=== PATIENT | male | born 1965 | race Caucasian/White ===

== ENCOUNTER 2017-05-20 09:50 | Emergency (ER) | payer MEDICAID ==
[~2017-05-20] VITALS: Ht 170.2 cm; Wt 108.9 kg
[2017-05-20 10:00] VITALS: BP_SYST 152
--- NOTE | 2017-05-20 10:03 | NUR ---
Patient triaged and placed in waiting room. VSS and patient appears in no acute distress at this time. Accompanied by SELF, awaiting available bed, and MD notified of need for MSE.
--- NOTE | 2017-05-20 10:15 | NUR ---
PT PLACED IN [address]
--- NOTE | 2017-05-20 10:20 | NUR ---
ER at bedside examining patient.
[2017-05-20 10:51] VITALS: BP_SYST 148
--- NOTE | 2017-05-20 10:51 | NUR ---
Patient given written and verbal discharge instructions and verbalizes understanding. ER MD discussed with patient the results and treatment provided. Patient in stable condition. ID arm band removed. IV catheter removed intact and dressing applied, no active bleeding. Rx of BACTRIM, METFORMIN, TRAMADOL, OMPEPRAZOLE, BENAZEPRIL AND LANSOPRAZOLE given. Patient educated on pain management and to follow up with PMD. Pain Scale 3. DR DALY IS AWARE, PRESCRIPTION WAS GIVEN FOR HOME, PT STATES WILL TAKE AT HOME Opportunity for questions provided and answered.
== END 2017-05-20 10:51 | disposition home or self-care (01) ==
LOC: SED 09:50
DX: Z76.0 Encounter for issue of repeat prescription (principal); G89.29 Other chronic pain; M54.5 Low back pain; K21.9 Gastro-esophageal reflux disease without esophagitis; I10 Essential (primary) hypertension; E11.9 Type 2 diabetes mellitus without complications
CPT/HCPCS: 99283

== ENCOUNTER 2017-06-27 15:41 | Emergency (ER) | payer MEDICAID ==
[~2017-06-27] VITALS: Ht 172.7 cm; Wt 117.5 kg
[2017-06-27 15:52] VITALS: BP_SYST 156
[2017-06-27] MEDS ORDERED: BACITRACIN 1 GM OINT TP ONE (17:45)
[2017-06-27 17:57] VITALS: BP_SYST 148
== END 2017-06-27 17:57 | disposition home or self-care (01) ==
LOC: SED 15:41
DX: Z76.0 Encounter for issue of repeat prescription (principal); R21 Rash and other nonspecific skin eruption; K21.9 Gastro-esophageal reflux disease without esophagitis; G89.29 Other chronic pain; M54.9 Dorsalgia, unspecified; I10 Essential (primary) hypertension; E11.9 Type 2 diabetes mellitus without complications; F17.200 Nicotine dependence, unspecified, uncomplicated
CPT/HCPCS: 99283

== ENCOUNTER 2021-11-01 05:22 | Emergency (ER) | payer MEDICAID ==
[~2021-11-01] VITALS: Ht 172.7 cm; Wt 77.1 kg
[2021-11-01] MEDS ORDERED: CLINDAMYCIN HCL 150 MG CAPSULE PO ONE (06:45)
[2021-11-01 07:00] VITALS: BP_SYST 155
[2021-11-01] MEDS ORDERED: CLIN-142 PO (07:26)
[2021-11-01 09:03] VITALS: BP_SYST 138
== END 2021-11-01 09:05 | disposition home or self-care (01) ==
LOC: SED 05:22
DX: L03.114 Cellulitis of left upper limb (principal); L03.113 Cellulitis of right upper limb; L03.221 Cellulitis of neck; E11.65 Type 2 diabetes mellitus with hyperglycemia; F45.8 Other somatoform disorders; I10 Essential (primary) hypertension; K21.9 Gastro-esophageal reflux disease without esophagitis; Z79.899 Other long term (current) drug therapy
CPT/HCPCS: 82962; 99283

== ENCOUNTER 2023-05-26 14:14 | Inpatient (IN) | payer MEDICAID, OTHER ==
[~2023-05-26] VITALS: Ht 172.7 cm; Wt 75.8 kg
[~2023-05-26 14:14] MED LIST: CLIN-142 PO
[2023-05-26 14:20] VITALS: BP_SYST 149; PULSE 115; RESP 18; TEMP 98.5; O2SAT 95
[2023-05-26 15:16] LABS: BASOPHILS % (AUTO) 0.3 % (0.0-2.0); EOSINOPHILS # (AUTO) 0.1 K/uL (0.0-0.4); EOSINOPHILS % (AUTO) 1.3 % (0.0-4.0); HEMATOCRIT 35.7 % (36-54); HEMOGLOBIN 11.6 g/dL (14.0-18.0); LYMPHOCYTES # (AUTO) 1.4 K/uL (1.0-5.5); LYMPHOCYTES % (AUTO) 17.4 % (20.5-51.5); MEAN CORPUSCULAR HEMOGLOBIN 30 pg (27-31); MEAN CORPUSCULAR HGB CONC 32 % (32-36); MEAN CORPUSCULAR VOLUME 92 fL (79.0-98.0); MONOCYTES # (AUTO) 0.5 K/uL (0.0-1.0); MONOCYTES % (AUTO) 6.2 % (1.7-9.3); NEUTROPHILS # (AUTO) 5.9 K/uL (1.8-7.7); NEUTROPHILS % (AUTO) 74.8 % (40.0-70.0); PLATELET COUNT (AUTO) 344 K/uL (130-430); RED BLOOD CELL COUNT(AUTO) 3.89 MIL/uL (4.2-6.2); RED CELL DISTRIBUTION WIDTH 17.7 % (9.0-15.0); WHITE BLOOD COUNT (AUTO) 7.9 K/uL (4.8-10.8)
[2023-05-26 15:59] LABS: ANION GAP 6 (5-15); CALCIUM 8.1 mg/dL (8.4-11.0); CARBON DIOXIDE 28 mmol/L (23-29); CHLORIDE 100 mmol/L (98-107); CREATININE 0.94 mg/dL (0.55-1.30); GFR AFRICAN AMERICAN 106 mL/min (>90); POTASSIUM 4.4 mmol/L (3.5-5.1); SODIUM SERUM 134 mmol/L (136-145); UREA NITROGEN, BLOOD 21 mg/dL (8-21)
[2023-05-26 16:02] LABS: GFR NON AFRICAN-AMERICAN 87 mL/min (>90)
[2023-05-26 16:03] LABS: GLUCOSE 429 mg/dL (74-106)
[2023-05-26] MEDS ORDERED: NACL 0.9% 1,000 ML IV ONE (16:15)
[2023-05-26] MEDS: INSULIN REGULAR, HUMAN 10 UNITS/0.1 ML, 3 ML VIAL IVP ONE (16:24)
[2023-05-26] MEDS: FUROSEMIDE 40 MG/4 ML VIAL IVP ONE (16:56)
[2023-05-26 17:13] LABS: BILIRUBIN,URINE NEGATIVE (NEGATIVE); CLARITY/URINE CLEAR (CLEAR); COLOR,URINE YELLOW (YELLOW); GLUCOSE,URINE 3+ (NEGATIVE); KETONES,URINE NEGATIVE (NEGATIVE); LEUKOCYTE ESTERASE ,URINE NEGATIVE (NEGATIVE); NITRITE, URINE NEGATIVE (NEGATIVE); PROTEIN URINE 1+ (NEGATIVE); UROBILINOGEN,URINE 0.2 (0.2-1.0)
[2023-05-26 17:15] LABS: BLOOD, URINE TRACE (NEGATIVE)
[2023-05-26 17:33] LABS: BACTERIA,URINE RARE /HPF (None Seen); RBC,URINE 0-3 /HPF (0-3); WBC,URINE 0-3 /HPF (0-3)
[2023-05-26 17:34] LABS: MUCUS,URINE None Seen /LPF (None Seen); YEAST,URINE Few /HPF (None Seen)
[2023-05-26 22:30] VITALS: BP_SYST 131; PULSE 108; RESP 20; TEMP 97.3; O2SAT 98
[2023-05-26] MEDS ORDERED: DEXTROSE 50% JECT 50 ML DISP.SYRIN IVP PRN (22:30)
[2023-05-26] MEDS ORDERED: ONDANSETRON HCL 4 MG/2 ML VIAL IVP PRN (22:45)
[2023-05-27] VITALS: BP_SYST 125; PULSE 102; RESP 22; TEMP 98.2; O2SAT 95
[2023-05-27] MEDS: TEMAZEPAM 15 MG CAPSULE PO PRN (01:04)
[2023-05-27] MEDS: ACETAMINOPHEN 325 MG TABLET PO PRN (01:05)
[2023-05-27] MEDS: SPIRONOLACTONE 25 MG TABLET (ALDACTONE) PO SCH (01:06)
[2023-05-27] MEDS: CARVEDILOL 6.25 MG TABLET (COREG) PO ONE (01:06)
[2023-05-27] MEDS: AMPICILLIN SODIUM/SULBACTAM NA 3 GM in NS 100 ML IV SCH (01:07)
[2023-05-27] MEDS: ENOXAPARIN SODIUM 40 MG/0.4 ML SYRINGE SUBCUT ONE (01:07)
[2023-05-27] MEDS: AMPICILLIN SODIUM/SULBACTAM NA 3 GM VIAL ONE (01:11)
[2023-05-27 01:13] LABS: BARBITURATE, URINE NEGATIVE (NEG <=200); BENZODIAZEPINE, URINE NEGATIVE (NEG <=150); CANNABINOID, URINE NEGATIVE (NEG <=50); COCAINE, URINE NEGATIVE (NEG <=150); METHAMPHETAMINES SCREEN,URINE POSITIVE (NEG <=500); OPIATE, URINE NEGATIVE (NEG <=100); PHENCYCLIDINE SCREEN,URINE NEGATIVE (NEG <=25); UR TRICYCLIC ANTIDEPRESSANTS NEGATIVE (NEG <=300); URINE AMPHETAMINE POSITIVE (NEG <=500); URINE METHADONE NEGATIVE (NEG <=200); URINE OXYCODONE SCREEN NEGATIVE (NEG <=100)
[2023-05-27 05:09] LABS: BASOPHILS % (AUTO) 0.1 % (0.0-2.0); EOSINOPHILS # (AUTO) 0.2 K/uL (0.0-0.4); EOSINOPHILS % (AUTO) 3.2 % (0.0-4.0); HEMATOCRIT 33.6 % (36-54); HEMOGLOBIN 10.9 g/dL (14.0-18.0); LYMPHOCYTES # (AUTO) 1.9 K/uL (1.0-5.5); MEAN CORPUSCULAR HEMOGLOBIN 30 pg (27-31); MEAN CORPUSCULAR HGB CONC 32 % (32-36); MEAN CORPUSCULAR VOLUME 91 fL (79.0-98.0); MONOCYTES # (AUTO) 0.5 K/uL (0.0-1.0); MONOCYTES % (AUTO) 6.6 % (1.7-9.3); NEUTROPHILS # (AUTO) 4.3 K/uL (1.8-7.7); NEUTROPHILS % (AUTO) 63.1 % (40.0-70.0); PLATELET COUNT (AUTO) 339 K/uL (130-430); RED BLOOD CELL COUNT(AUTO) 3.69 MIL/uL (4.2-6.2); WHITE BLOOD COUNT (AUTO) 6.9 K/uL (4.8-10.8)
[2023-05-27 05:44] LABS: ALBUMIN 2.3 g/dL (3.4-4.8); CALCIUM 8.4 mg/dL (8.4-11.0); CREATININE 0.91 mg/dL (0.55-1.30); FREE T4 (FREE THYROXINE) 1.2 ng/dL (0.6-1.6); POTASSIUM 4.4 mmol/L (3.5-5.1); TOTAL BILIRUBIN 0.6 mg/dL (0.0-1.0); TOTAL PROTEIN, SERUM 6.9 g/dL (6.4-8.3)
[2023-05-27] MEDS: INSULIN REGULAR, HUMAN 100 UNITS/ML, 3 ML VIAL (humuLIN R) SUBCUT PRN (06:59)
[2023-05-27 09:00] VITALS: O2SAT 94
[2023-05-27] MEDS: CHOLECALCIFEROL (VITAMIN D3) 2,000 UNIT TABLET PO SCH (09:07)
[2023-05-27] MEDS: MAGNESIUM OXIDE 400 MG TABLET PO SCH (09:07)
[2023-05-27] MEDS: CARVEDILOL 6.25 MG TABLET (COREG) PO SCH (09:08)
[2023-05-27] MEDS: ASCORBIC ACID 500 MG TABLET PO SCH (09:09)
[2023-05-27] MEDS: FUROSEMIDE 40 MG/4 ML VIAL IVP SCH (09:10)
[2023-05-27] MEDS: ENOXAPARIN SODIUM 40 MG/0.4 ML SYRINGE SUBCUT SCH (09:11)
[2023-05-27 09:36] VITALS: BP_SYST 117; PULSE 101; RESP 18; TEMP 97.9; O2SAT 94
[2023-05-27 11:25] VITALS: BP_SYST 114; PULSE 87; RESP 19; TEMP 97.9; O2SAT 99
[2023-05-27 17:22] VITALS: BP_SYST 123; PULSE 95; RESP 16; TEMP 97.1; O2SAT 95
[2023-05-27] MEDS ORDERED: NALOXONE HCL 0.4 MG/ML AMP (NARCAN) IVP PRN ×2 (17:30)
[2023-05-27] MEDS ORDERED: HYDROcodone/ACETAMIN 5-325 MG TAB (NORCO/ VICODIN) PO PRN (17:30)
[2023-05-27] MEDS ORDERED: BISACODYL 10 MG/SUPPOSITORY RC PRN (18:00)
[2023-05-27] MEDS: LACTULOSE 20 GM/30 ML UDC PO ONE (18:27)
[2023-05-27] MEDS: HYDROcodone/ACETAMIN 5-325 MG TAB (NORCO/ VICODIN) PO PRN (18:27)
[2023-05-27] MEDS: DEXAMETHASONE SOD PHOSPHATE 10 MG/ML VIAL IVP SCH (18:28)
[2023-05-27] MEDS: cefTRIAXone 1 GM in D5W 50 ML IV SCH (18:31)
[2023-05-27] MEDS: METOCLOPRAMIDE HCL 10 MG TABLET PO SCH (18:44)
[2023-05-27] MEDS: DOCUSATE SODIUM 250 MG CAPSULE PO SCH (21:00)
[2023-05-27] MEDS: LACTULOSE 20 GM/30 ML UDC PO SCH (21:00)
[2023-05-27] MEDS: AZITHROMYCIN 500 MG in NS 250 ML IV ONE (22:27)
[2023-05-27] MEDS: SIMETHICONE 80 MG TAB.CHEW PO SCH (22:28)
[2023-05-27 23:40] VITALS: BP_SYST 121; PULSE 120; RESP 30; TEMP 97.7; O2SAT 90
[2023-05-27] MEDS ORDERED: ETOMIDATE 20 MG/ 10 ML VIAL (AMIDATE) ONE (23:55)
[2023-05-27] MEDS ORDERED: ROCURONIUM BROMIDE 10 MG/ML (ZEMURON) ONE (23:55)
[2023-05-27] MEDS: PROPOFOL DRIP 100 ML IV ONE (23:56)
[2023-05-27] MEDS: FENTANYL CITRATE-0.9 % NACL/PF 100 ML IV ONE (23:57)
[2023-05-28] VITALS (37 sets, daily range): BP systolic 78–188; PULSE 63–127; RESP 14–27; TEMP 96.5–97.9; O2SAT 78–100
[2023-05-28] MEDS ORDERED: PROPOFOL DRIP 100 ML IV PRN
[2023-05-28 01:53] LABS: BLOOD GAS PCO2 46.5 mmHg (32.0-45.0); BLOOD GAS PH 7.278 (7.350-7.450)
[2023-05-28 01:54] LABS: ABG O2 SAT% ESTIMATE 98.6 % (94.0-100.0); ALLEN'S TEST POSITIVE (P); BLOOD GAS BASE EXCESS -5.6 mmol/L (-3.0-3.0); BLOOD GAS HCO3 21.3 mmol/L (21.0-27.0); BLOOD GAS PO2 148.9 mmHg (75.0-100.0)
[2023-05-28] MEDS ORDERED: NACL 0.9% 1,000 ML IV SCH (02:30)
[2023-05-28 05:54] LABS: BASOPHILS % (AUTO) 0.1 % (0.0-2.0); EOSINOPHILS % (AUTO) 0.1 % (0.0-4.0); HEMATOCRIT 35.2 % (36-54); HEMOGLOBIN 11.4 g/dL (14.0-18.0); LYMPHOCYTES % (AUTO) 14.7 % (20.5-51.5); MEAN CORPUSCULAR HEMOGLOBIN 30 pg (27-31); MEAN CORPUSCULAR HGB CONC 33 % (32-36); MEAN CORPUSCULAR VOLUME 91 fL (79.0-98.0); MONOCYTES # (AUTO) 0.2 K/uL (0.0-1.0); MONOCYTES % (AUTO) 3.3 % (1.7-9.3); NEUTROPHILS # (AUTO) 5.7 K/uL (1.8-7.7); NEUTROPHILS % (AUTO) 81.8 % (40.0-70.0); PLATELET COUNT (AUTO) 351 K/uL (130-430); RED BLOOD CELL COUNT(AUTO) 3.87 MIL/uL (4.2-6.2); RED CELL DISTRIBUTION WIDTH 17.1 % (9.0-15.0)
[2023-05-28 06:16] LABS: ALBUMIN 2.2 g/dL (3.4-4.8); CALCIUM 8.6 mg/dL (8.4-11.0); CREATININE 1.16 mg/dL (0.55-1.30); POTASSIUM 5.1 mmol/L (3.5-5.1); TOTAL BILIRUBIN 0.5 mg/dL (0.0-1.0); TOTAL PROTEIN, SERUM 7.2 g/dL (6.4-8.3)
[2023-05-28 07:39] LABS: INR 1.3 (0.80-1.20); PROTHROMBIN TIME 13.7 SECS (9.5-12.5)
[2023-05-28] MEDS: NOREPINEPHR 8 MG/250 mL NS 250 ML IV PRN (08:37)
[2023-05-28] MEDS: AZITHROMYCIN 250 MG TABLET PO SCH (08:47)
[2023-05-28] MEDS: MIDAZOLAM IN NACL,ISO-OSMOT/PF 100 ML IV PRN (08:57)
[2023-05-28] MEDS: FENTANYL CITRATE-0.9 % NACL/PF 100 ML IV PRN ×2 (08:57→14:30)
[2023-05-28] MEDS: FUROSEMIDE 40 MG/4 ML VIAL IVP SCH (08:59)
[2023-05-28] MEDS: PROPOFOL DRIP 100 ML IV PRN (13:10)
[2023-05-28] MEDS: NACL 0.9% 1,000 ML IV SCH (13:13)
[2023-05-28] MEDS: BARICITINIB -Non-Formulary 2 MG TABLET PO ONE (14:25)
[2023-05-28 16:24] LABS: ABG O2 SAT% ESTIMATE 86.4 % (94.0-100.0); BLOOD GAS BASE EXCESS 3.8 mmol/L (-3.0-3.0); BLOOD GAS HCO3 26.4 mmol/L (21.0-27.0); BLOOD GAS PCO2 33.9 mmHg (32.0-45.0)
[2023-05-29] VITALS (33 sets, daily range): BP systolic 94–126; PULSE 19–86; RESP 16–18; TEMP 97–98; O2SAT 94–100
[2023-05-29 05:28] LABS: BASOPHILS % (AUTO) 0.1 % (0.0-2.0); HEMATOCRIT 37.5 % (36-54); HEMOGLOBIN 12.3 g/dL (14.0-18.0); LYMPHOCYTES # (AUTO) 1.4 K/uL (1.0-5.5); LYMPHOCYTES % (AUTO) 24.4 % (20.5-51.5); MEAN CORPUSCULAR HEMOGLOBIN 30 pg (27-31); MEAN CORPUSCULAR HGB CONC 33 % (32-36); MEAN CORPUSCULAR VOLUME 91 fL (79.0-98.0); MONOCYTES # (AUTO) 0.3 K/uL (0.0-1.0); MONOCYTES % (AUTO) 4.8 % (1.7-9.3); NEUTROPHILS # (AUTO) 4.1 K/uL (1.8-7.7); NEUTROPHILS % (AUTO) 70.7 % (40.0-70.0); PLATELET COUNT (AUTO) 360 K/uL (130-430); RED BLOOD CELL COUNT(AUTO) 4.12 MIL/uL (4.2-6.2); RED CELL DISTRIBUTION WIDTH 17.5 % (9.0-15.0); WHITE BLOOD COUNT (AUTO) 5.8 K/uL (4.8-10.8)
[2023-05-29 05:42] LABS: CALCIUM 8.4 mg/dL (8.4-11.0); CREATININE 1.25 mg/dL (0.55-1.30)
[2023-05-29 06:01] LABS: TOTAL BILIRUBIN 0.3 mg/dL (0.0-1.0); TOTAL PROTEIN, SERUM 6.3 g/dL (6.4-8.3)
[2023-05-29] MEDS: BISACODYL 5 MG TABLET.DR (DULCOLAX) PO PRN (08:11)
[2023-05-29 08:20] LABS: ABG O2 SAT% ESTIMATE 92.4 % (94.0-100.0); BLOOD GAS BASE EXCESS 2.6 mmol/L (-3.0-3.0); BLOOD GAS PCO2 40.7 mmHg (32.0-45.0); BLOOD GAS PH 7.439 (7.350-7.450); BLOOD GAS PO2 61.4 mmHg (75.0-100.0)
[2023-05-29] MEDS: BARICITINIB -Non-Formulary 2 MG TABLET PO SCH (08:23)
[2023-05-29] MEDS: BALSAM PERU/CASTOR OIL 56.7 GM OINT...G. TP SCH (08:25)
[2023-05-29] MEDS: DOCUSATE SODIUM 100 MG/10 ML UDC PO SCH (08:28)
[2023-05-29] MEDS: ACETYLCYSTEINE 20% 4 ML VIAL (RT) INH SCH (11:42)
[2023-05-29] MEDS: IPRATROPIUM/ALBUTEROL SULFATE 3 ML AMPUL.NEB (DUONEB) INH SCH (11:43)
[2023-05-29] MEDS: metFORMIN HCL 500 MG TABLET PO SCH (20:34)
[2023-05-30] VITALS (31 sets, daily range): BP systolic 93–117; PULSE 55–66; RESP 16; TEMP 96–98; O2SAT 97–100
[2023-05-30 05:05] LABS: BASOPHILS % (AUTO) 0.3 % (0.0-2.0); HEMATOCRIT 36.5 % (36-54); LYMPHOCYTES # (AUTO) 2.3 K/uL (1.0-5.5); LYMPHOCYTES % (AUTO) 24.7 % (20.5-51.5); MEAN CORPUSCULAR HEMOGLOBIN 30 pg (27-31); MEAN CORPUSCULAR HGB CONC 33 % (32-36); MEAN CORPUSCULAR VOLUME 91 fL (79.0-98.0); MONOCYTES # (AUTO) 0.9 K/uL (0.0-1.0); PLATELET COUNT (AUTO) 360 K/uL (130-430); RED BLOOD CELL COUNT(AUTO) 4.04 MIL/uL (4.2-6.2); RED CELL DISTRIBUTION WIDTH 17.3 % (9.0-15.0); WHITE BLOOD COUNT (AUTO) 9.3 K/uL (4.8-10.8)
[2023-05-30 05:42] LABS: ALBUMIN 2.1 g/dL (3.4-4.8); CALCIUM 7.8 mg/dL (8.4-11.0); CREATININE 1.17 mg/dL (0.55-1.30); POTASSIUM 4.8 mmol/L (3.5-5.1); TOTAL BILIRUBIN 0.2 mg/dL (0.0-1.0); TOTAL PROTEIN, SERUM 6.5 g/dL (6.4-8.3)
[2023-05-30 10:06] LABS: ABG O2 SAT% ESTIMATE 96.6 % (94.0-100.0); BLOOD GAS BASE EXCESS 4.1 mmol/L (-3.0-3.0); BLOOD GAS HCO3 29.4 mmol/L (21.0-27.0); BLOOD GAS PCO2 46.1 mmHg (32.0-45.0); BLOOD GAS PH 7.422 (7.350-7.450); BLOOD GAS PO2 85.4 mmHg (75.0-100.0)
[2023-05-30] MEDS ORDERED: chlordiazePOXIDE HCL 25 MG CAPSULE PO PRN (18:00)
[2023-05-30] MEDS: FUROSEMIDE 20 MG/2 ML VIAL IVP SCH (20:24)
[2023-05-30] MEDS: BALSAM PERU/CASTOR OIL 56.7 GM OINT...G. TP ONE (20:25)
[2023-05-30] MEDS: QUEtiapine FUMARATE 25 MG TABLET PO SCH (20:25)
[2023-05-31] VITALS (36 sets, daily range): BP systolic 91–111; PULSE 53–69; RESP 16–17; TEMP 97.6–98; O2SAT 96–100
[2023-05-31 05:32] LABS: BASOPHILS % (AUTO) 0.1 % (0.0-2.0); EOSINOPHILS % (AUTO) 0.4 % (0.0-4.0); HEMATOCRIT 36.4 % (36-54); HEMOGLOBIN 11.9 g/dL (14.0-18.0); LYMPHOCYTES # (AUTO) 3.1 K/uL (1.0-5.5); LYMPHOCYTES % (AUTO) 32.6 % (20.5-51.5); MEAN CORPUSCULAR HEMOGLOBIN 30 pg (27-31); MEAN CORPUSCULAR HGB CONC 33 % (32-36); MEAN CORPUSCULAR VOLUME 91 fL (79.0-98.0); MONOCYTES # (AUTO) 0.9 K/uL (0.0-1.0); MONOCYTES % (AUTO) 9.2 % (1.7-9.3); NEUTROPHILS # (AUTO) 5.5 K/uL (1.8-7.7); NEUTROPHILS % (AUTO) 57.7 % (40.0-70.0); PLATELET COUNT (AUTO) 336 K/uL (130-430); RED CELL DISTRIBUTION WIDTH 17.6 % (9.0-15.0); WHITE BLOOD COUNT (AUTO) 9.5 K/uL (4.8-10.8)
[2023-05-31 06:02] LABS: ALBUMIN 2.1 g/dL (3.4-4.8); CALCIUM 8.5 mg/dL (8.4-11.0); CREATININE 1.09 mg/dL (0.55-1.30); POTASSIUM 4.2 mmol/L (3.5-5.1); TOTAL BILIRUBIN 0.3 mg/dL (0.0-1.0); TOTAL PROTEIN, SERUM 6.4 g/dL (6.4-8.3)
[2023-05-31 09:45] LABS: ABG O2 SAT% ESTIMATE 96.1 % (94.0-100.0); BLOOD GAS BASE EXCESS 6.4 mmol/L (-3.0-3.0); BLOOD GAS HCO3 32.3 mmol/L (21.0-27.0); BLOOD GAS PH 7.421 (7.350-7.450)
[2023-05-31 09:49] LABS: ALLEN'S TEST POSITIVE (P); BLOOD GAS PCO2 50.9 mmHg (32.0-45.0)
[2023-06-01] VITALS (22 sets, daily range): BP systolic 89–112; PULSE 60–72; RESP 15–19; TEMP 96.6–97.6; O2SAT 90–99
[2023-06-01 06:57] LABS: ALBUMIN 2.1 g/dL (3.4-4.8); CALCIUM 8.6 mg/dL (8.4-11.0); CREATININE 0.81 mg/dL (0.55-1.30); TOTAL BILIRUBIN 0.4 mg/dL (0.0-1.0); TOTAL PROTEIN, SERUM 6.7 g/dL (6.4-8.3)
[2023-06-01 07:01] LABS: HEMATOCRIT 39.7 % (36-54); HEMOGLOBIN 12.7 g/dL (14.0-18.0); LYMPHOCYTES # (AUTO) 0.9 K/uL (1.0-5.5); LYMPHOCYTES % (AUTO) 10.5 % (20.5-51.5); MEAN CORPUSCULAR HEMOGLOBIN 29 pg (27-31); MEAN CORPUSCULAR HGB CONC 32 % (32-36); MEAN CORPUSCULAR VOLUME 91 fL (79.0-98.0); MONOCYTES # (AUTO) 0.2 K/uL (0.0-1.0); MONOCYTES % (AUTO) 2.5 % (1.7-9.3); NEUTROPHILS # (AUTO) 7.2 K/uL (1.8-7.7); PLATELET COUNT (AUTO) 325 K/uL (130-430); RED BLOOD CELL COUNT(AUTO) 4.34 MIL/uL (4.2-6.2); RED CELL DISTRIBUTION WIDTH 17.9 % (9.0-15.0); WHITE BLOOD COUNT (AUTO) 8.3 K/uL (4.8-10.8)
[2023-06-01] MEDS: DEXAMETHASONE SOD PHOSPHATE 4 MG/ML VIAL IVP SCH (14:23)
[2023-06-01] MEDS: chlordiazePOXIDE HCL 25 MG CAPSULE PO SCH (14:25)
[2023-06-01] MEDS: metFORMIN HCL 500 MG TABLET PO SCH (20:56)
[2023-06-02] VITALS (29 sets, daily range): BP systolic 117–180; PULSE 63–114; RESP 14–41; TEMP 96.5–97.6; O2SAT 90–100
[2023-06-02] MEDS: LORazepam 2 MG/ML VIAL IVP PRN ×2 (03:22→20:10)
[2023-06-02 06:28] LABS: BASOPHILS % (AUTO) 0.1 % (0.0-2.0); HEMATOCRIT 38.4 % (36-54); HEMOGLOBIN 12.5 g/dL (14.0-18.0); LYMPHOCYTES # (AUTO) 1.2 K/uL (1.0-5.5); LYMPHOCYTES % (AUTO) 11.6 % (20.5-51.5); MEAN CORPUSCULAR HEMOGLOBIN 30 pg (27-31); MEAN CORPUSCULAR HGB CONC 33 % (32-36); MEAN CORPUSCULAR VOLUME 91 fL (79.0-98.0); MONOCYTES # (AUTO) 0.8 K/uL (0.0-1.0); MONOCYTES % (AUTO) 7.7 % (1.7-9.3); NEUTROPHILS # (AUTO) 8.4 K/uL (1.8-7.7); NEUTROPHILS % (AUTO) 80.6 % (40.0-70.0); PLATELET COUNT (AUTO) 273 K/uL (130-430); RED BLOOD CELL COUNT(AUTO) 4.22 MIL/uL (4.2-6.2); RED CELL DISTRIBUTION WIDTH 17.5 % (9.0-15.0); WHITE BLOOD COUNT (AUTO) 10.5 K/uL (4.8-10.8)
[2023-06-02 06:44] LABS: CALCIUM 8.9 mg/dL (8.4-11.0)
[2023-06-02 06:45] LABS: ALBUMIN 2.4 g/dL (3.4-4.8); CREATININE 0.92 mg/dL (0.55-1.30); PHOSPHORUS 4.5 mg/dL (2.7-4.5); TOTAL BILIRUBIN 0.5 mg/dL (0.0-1.0)
[2023-06-02 09:28] LABS: ABG O2 SAT% ESTIMATE 97.4 % (94.0-100.0); BLOOD GAS BASE EXCESS -0.5 mmol/L (-3.0-3.0); BLOOD GAS HCO3 23.9 mmol/L (21.0-27.0); BLOOD GAS PCO2 38.7 mmHg (32.0-45.0); BLOOD GAS PH 7.409 (7.350-7.450); BLOOD GAS PO2 96.7 mmHg (75.0-100.0)
[2023-06-02 09:32] LABS: ALLEN'S TEST POSITIVE (P)
[2023-06-02] MEDS: HALOPERIDOL LACTATE 5 MG/ML VIAL IM PRN (14:27)
[2023-06-02] MEDS: FUROSEMIDE 20 MG/2 ML VIAL IVP ONE (14:32)
[2023-06-02] MEDS: ACETYLCYSTEINE 20% 4 ML VIAL (RT) INH SCH (15:03)
[2023-06-02] MEDS ORDERED: QUEtiapine FUMARATE 25 MG TABLET PO SCH (18:00)
[2023-06-02] MEDS: FUROSEMIDE 20 MG/2 ML VIAL IVP SCH (21:09)
[2023-06-02] MEDS: hydrALAZINE HCL 20 MG/ML VIAL IVP PRN (23:43)
[2023-06-03] VITALS (23 sets, daily range): BP systolic 135–163; PULSE 102–114; RESP 11–39; TEMP 96.4–97.2; O2SAT 90–98
[2023-06-03 05:05] LABS: BASOPHILS % (AUTO) 0.1 % (0.0-2.0); EOSINOPHILS % (AUTO) 0.1 % (0.0-4.0); HEMATOCRIT 40.6 % (36-54); HEMOGLOBIN 13.1 g/dL (14.0-18.0); LYMPHOCYTES # (AUTO) 2.1 K/uL (1.0-5.5); LYMPHOCYTES % (AUTO) 14.2 % (20.5-51.5); MEAN CORPUSCULAR HEMOGLOBIN 29 pg (27-31); MEAN CORPUSCULAR HGB CONC 32 % (32-36); MEAN CORPUSCULAR VOLUME 91 fL (79.0-98.0); NEUTROPHILS # (AUTO) 11.6 K/uL (1.8-7.7); NEUTROPHILS % (AUTO) 78.6 % (40.0-70.0); PLATELET COUNT (AUTO) 333 K/uL (130-430); RED BLOOD CELL COUNT(AUTO) 4.48 MIL/uL (4.2-6.2); RED CELL DISTRIBUTION WIDTH 17.6 % (9.0-15.0); WHITE BLOOD COUNT (AUTO) 14.8 K/uL (4.8-10.8)
[2023-06-03 05:35] LABS: ALBUMIN 2.8 g/dL (3.4-4.8); CALCIUM 9.2 mg/dL (8.4-11.0); CREATININE 0.9 mg/dL (0.55-1.30); POTASSIUM 4.4 mmol/L (3.5-5.1); TOTAL BILIRUBIN 0.8 mg/dL (0.0-1.0); TOTAL PROTEIN, SERUM 7.7 g/dL (6.4-8.3)
[2023-06-03] MEDS: METHYLPREDNISOLONE SOD SUCC 40 MG/ML VIAL IVP SCH ×2 (14:00→21:30)
[2023-06-03] MEDS: DIPHENHYDRAMINE INJ 50 MG/ML VIAL IM PRN (17:05)
[2023-06-03] MEDS: OLANZapine IntraMuscular 10 MG VIAL (FOR I.M. INJECTION ONLY) IM ONE (17:30)
[2023-06-03] MEDS: QUEtiapine FUMARATE 25 MG TABLET PO SCH (21:30)
[2023-06-04] VITALS (29 sets, daily range): BP systolic 108–155; PULSE 89–112; RESP 13–31; TEMP 97.2–98.4; O2SAT 90–100
[2023-06-04] MEDS: THIAMINE HCL 100 MG in NS 50 ML IV SCH
[2023-06-04 05:21] LABS: HEMATOCRIT 42.3 % (36-54); HEMOGLOBIN 13.8 g/dL (14.0-18.0); LYMPHOCYTES # (AUTO) 0.9 K/uL (1.0-5.5); LYMPHOCYTES % (AUTO) 9.1 % (20.5-51.5); MEAN CORPUSCULAR HEMOGLOBIN 30 pg (27-31); MEAN CORPUSCULAR HGB CONC 33 % (32-36); MEAN CORPUSCULAR VOLUME 91 fL (79.0-98.0); MONOCYTES # (AUTO) 0.7 K/uL (0.0-1.0); MONOCYTES % (AUTO) 6.9 % (1.7-9.3); NEUTROPHILS # (AUTO) 8.5 K/uL (1.8-7.7); PLATELET COUNT (AUTO) 308 K/uL (130-430); RED BLOOD CELL COUNT(AUTO) 4.66 MIL/uL (4.2-6.2); RED CELL DISTRIBUTION WIDTH 17.6 % (9.0-15.0); WHITE BLOOD COUNT (AUTO) 10.1 K/uL (4.8-10.8)
[2023-06-04 05:56] LABS: ALBUMIN 2.8 g/dL (3.4-4.8); CALCIUM 9.1 mg/dL (8.4-11.0); CREATININE 0.97 mg/dL (0.55-1.30); POTASSIUM 4.4 mmol/L (3.5-5.1); TOTAL BILIRUBIN 1.2 mg/dL (0.0-1.0); TOTAL PROTEIN, SERUM 7.8 g/dL (6.4-8.3)
[2023-06-04] MEDS: D5/0.45 NS 1,000 ML IV SCH (08:59)
[2023-06-04] MEDS: LIDOCAINE 1% 10 MG/ML, 20 ML MDV INJ ONE (12:11)
[2023-06-04] MEDS: QUEtiapine FUMARATE 25 MG TABLET PO SCH (17:55)
[2023-06-04] MEDS: chlordiazePOXIDE HCL 25 MG CAPSULE PO SCH (20:31)
[2023-06-05] VITALS (30 sets, daily range): BP systolic 107–142; PULSE 78–100; RESP 15–28; TEMP 97.6–98; O2SAT 93–100
[2023-06-05 04:53] LABS: HEMATOCRIT 38.6 % (36-54); HEMOGLOBIN 12.7 g/dL (14.0-18.0); LYMPHOCYTES # (AUTO) 0.8 K/uL (1.0-5.5); LYMPHOCYTES % (AUTO) 8.4 % (20.5-51.5); MEAN CORPUSCULAR HEMOGLOBIN 29 pg (27-31); MEAN CORPUSCULAR HGB CONC 33 % (32-36); MONOCYTES # (AUTO) 0.4 K/uL (0.0-1.0); MONOCYTES % (AUTO) 4.6 % (1.7-9.3); NEUTROPHILS # (AUTO) 7.7 K/uL (1.8-7.7); PLATELET COUNT (AUTO) 284 K/uL (130-430); RED BLOOD CELL COUNT(AUTO) 4.32 MIL/uL (4.2-6.2); RED CELL DISTRIBUTION WIDTH 17.1 % (9.0-15.0); WHITE BLOOD COUNT (AUTO) 8.9 K/uL (4.8-10.8)
[2023-06-05 05:16] LABS: ALBUMIN 2.3 g/dL (3.4-4.8); CALCIUM 8.4 mg/dL (8.4-11.0); CREATININE 0.74 mg/dL (0.55-1.30); POTASSIUM 4.4 mmol/L (3.5-5.1); TOTAL BILIRUBIN 0.8 mg/dL (0.0-1.0); TOTAL PROTEIN, SERUM 6.5 g/dL (6.4-8.3)
[2023-06-05] MEDS: LORazepam 2 MG/ML VIAL IVP PRN (05:48)
[2023-06-05 07:46] LABS: MEAN CORPUSCULAR VOLUME 89 fL (79.0-98.0)
[2023-06-05 14:38] LABS: INR 1.3 (0.80-1.20); PROTHROMBIN TIME 13.2 SECS (9.5-12.5)
[2023-06-05] MEDS: metFORMIN HCL 500 MG TABLET PO SCH (17:26)
[2023-06-06] VITALS (28 sets, daily range): BP systolic 111–152; PULSE 77–96; RESP 15–31; TEMP 97.5–97.8; O2SAT 92–100
[2023-06-06 05:49] LABS: EOSINOPHILS % (AUTO) 0.1 % (0.0-4.0); HEMATOCRIT 41.1 % (36-54); HEMOGLOBIN 13.5 g/dL (14.0-18.0); LYMPHOCYTES % (AUTO) 8.1 % (20.5-51.5); MEAN CORPUSCULAR HEMOGLOBIN 30 pg (27-31); MEAN CORPUSCULAR HGB CONC 33 % (32-36); MEAN CORPUSCULAR VOLUME 91 fL (79.0-98.0); MONOCYTES # (AUTO) 0.8 K/uL (0.0-1.0); MONOCYTES % (AUTO) 6.2 % (1.7-9.3); NEUTROPHILS # (AUTO) 10.5 K/uL (1.8-7.7); NEUTROPHILS % (AUTO) 85.6 % (40.0-70.0); PLATELET COUNT (AUTO) 331 K/uL (130-430); RED BLOOD CELL COUNT(AUTO) 4.54 MIL/uL (4.2-6.2); WHITE BLOOD COUNT (AUTO) 12.3 K/uL (4.8-10.8)
[2023-06-06 05:54] LABS: ALBUMIN 2.5 g/dL (3.4-4.8); CALCIUM 8.6 mg/dL (8.4-11.0); CREATININE 0.73 mg/dL (0.55-1.30); POTASSIUM 4.5 mmol/L (3.5-5.1); TOTAL BILIRUBIN 0.8 mg/dL (0.0-1.0); TOTAL PROTEIN, SERUM 6.7 g/dL (6.4-8.3)
[2023-06-06] MEDS: QUEtiapine FUMARATE 100 MG TABLET PO SCH (17:51)
[2023-06-07] VITALS (13 sets, daily range): BP systolic 119–129; PULSE 84–96; RESP 18–26; TEMP 97.1–97.6; O2SAT 93–99
[2023-06-07 05:56] LABS: EOSINOPHILS % (AUTO) 0.1 % (0.0-4.0); HEMATOCRIT 42.6 % (36-54); HEMOGLOBIN 13.7 g/dL (14.0-18.0); LYMPHOCYTES # (AUTO) 1.1 K/uL (1.0-5.5); MEAN CORPUSCULAR HEMOGLOBIN 29 pg (27-31); MEAN CORPUSCULAR HGB CONC 32 % (32-36); MEAN CORPUSCULAR VOLUME 90 fL (79.0-98.0); MONOCYTES # (AUTO) 0.8 K/uL (0.0-1.0); MONOCYTES % (AUTO) 6.3 % (1.7-9.3); NEUTROPHILS # (AUTO) 10.3 K/uL (1.8-7.7); NEUTROPHILS % (AUTO) 84.6 % (40.0-70.0); PLATELET COUNT (AUTO) 352 K/uL (130-430); RED BLOOD CELL COUNT(AUTO) 4.73 MIL/uL (4.2-6.2); RED CELL DISTRIBUTION WIDTH 17.2 % (9.0-15.0); WHITE BLOOD COUNT (AUTO) 12.2 K/uL (4.8-10.8)
[2023-06-07 06:18] LABS: ALBUMIN 2.5 g/dL (3.4-4.8); CALCIUM 8.6 mg/dL (8.4-11.0); CREATININE 0.66 mg/dL (0.55-1.30); POTASSIUM 3.8 mmol/L (3.5-5.1); TOTAL BILIRUBIN 0.8 mg/dL (0.0-1.0); TOTAL PROTEIN, SERUM 6.8 g/dL (6.4-8.3)
[2023-06-07] MEDS: metFORMIN HCL 500 MG TABLET PO SCH (18:17)
[2023-06-07] MEDS: QUEtiapine FUMARATE 100 MG TABLET PO SCH (18:18)
[2023-06-08] VITALS (11 sets, daily range): BP systolic 101–104; PULSE 77–99; RESP 16–20; TEMP 97–98.3; O2SAT 92–99
[2023-06-08 07:09] LABS: BASOPHILS % (AUTO) 0.1 % (0.0-2.0); EOSINOPHILS # (AUTO) 0.1 K/uL (0.0-0.4); EOSINOPHILS % (AUTO) 0.5 % (0.0-4.0); HEMATOCRIT 42.7 % (36-54); HEMOGLOBIN 13.9 g/dL (14.0-18.0); LYMPHOCYTES # (AUTO) 2.8 K/uL (1.0-5.5); LYMPHOCYTES % (AUTO) 19.1 % (20.5-51.5); MEAN CORPUSCULAR HEMOGLOBIN 29 pg (27-31); MEAN CORPUSCULAR HGB CONC 33 % (32-36); MEAN CORPUSCULAR VOLUME 90 fL (79.0-98.0); MONOCYTES # (AUTO) 1.4 K/uL (0.0-1.0); MONOCYTES % (AUTO) 9.8 % (1.7-9.3); NEUTROPHILS # (AUTO) 10.4 K/uL (1.8-7.7); NEUTROPHILS % (AUTO) 70.5 % (40.0-70.0); PLATELET COUNT (AUTO) 339 K/uL (130-430); RED BLOOD CELL COUNT(AUTO) 4.73 MIL/uL (4.2-6.2); RED CELL DISTRIBUTION WIDTH 17.3 % (9.0-15.0); WHITE BLOOD COUNT (AUTO) 14.7 K/uL (4.8-10.8)
[2023-06-08 07:18] LABS: ALBUMIN 2.3 g/dL (3.4-4.8); CREATININE 0.57 mg/dL (0.55-1.30); POTASSIUM 3.7 mmol/L (3.5-5.1); TOTAL BILIRUBIN 0.6 mg/dL (0.0-1.0); TOTAL PROTEIN, SERUM 6.2 g/dL (6.4-8.3)
[2023-06-08] MEDS: METHYLPREDNISOLONE SOD SUCC 40 MG/ML VIAL IVP SCH (10:00)
[2023-06-08] MEDS ORDERED: traZODone HCL 50 MG TABLET (DESYREL) PO PRN (17:15)
[2023-06-08] MEDS: QUEtiapine FUMARATE 100 MG TABLET PO SCH (17:34)
[2023-06-08] MEDS: MULTIVITAMINS TAB 1 TABLET PO SCH (21:35)
[2023-06-08] MEDS: PANTOPRAZOLE SODIUM 40 MG TAB PO SCH (21:35)
[2023-06-09] VITALS (12 sets, daily range): BP systolic 98–121; PULSE 77–90; RESP 14–20; TEMP 96.6–98.6; O2SAT 91–100
[2023-06-09] MEDS ORDERED: chlordiazePOXIDE HCL 25 MG CAPSULE PO SCH (09:00)
[2023-06-09] MEDS ORDERED: METHYLPREDNISOLONE SOD SUCC 40 MG/ML VIAL IVP SCH (09:00)
[2023-06-09] MEDS: SERTRALINE HCL 50 MG TABLET PO SCH (10:04)
[2023-06-09] MEDS: FOLIC ACID 1 MG TABLET PO SCH (10:04)
[2023-06-09] MEDS: THIAMINE HCL 100 MG TABLET PO SCH (10:04)
[2023-06-09] MEDS ORDERED: traZODone HCL 50 MG TABLET (DESYREL) PO PRN (12:30)
[2023-06-09] MEDS: HALOPERIDOL 5 MG TABLET (HALDOL) PO ONE (14:37)
[2023-06-10] VITALS (9 sets, daily range): BP systolic 74–121; PULSE 79–99; RESP 16–20; TEMP 97.1–99.2; O2SAT 85–98
[2023-06-10] MEDS: SERTRALINE HCL 50 MG TABLET PO SCH (10:59)
[2023-06-10] MEDS: SILVER SULFADIAZINE 1%, 400 GM 400 GM CREAM.GM. TP ONE (14:00)
[2023-06-10] MEDS: HALOPERIDOL 5 MG TABLET (HALDOL) PO ONE (17:15)
[2023-06-10] MEDS: LORazepam 2 MG/ML VIAL IVP PRN (18:52)
[2023-06-10] MEDS: HALOPERIDOL 5 MG TABLET (HALDOL) PO SCH (21:00)
[2023-06-10] MEDS: VALPROIC ACID 250 MG CAPSULE (DEPAKENE) PO SCH (21:22)
[2023-06-10] MEDS: traZODone HCL 50 MG TABLET (DESYREL) PO SCH (21:23)
[2023-06-10] MEDS: NYSTATIN 15 GM TOPICAL POWDER TP SCH (21:25)
[2023-06-11] VITALS (11 sets, daily range): BP systolic 93–115; PULSE 83–93; RESP 14–20; TEMP 97.3–98.4; O2SAT 93–100
[2023-06-11 06:27] LABS: BASOPHILS % (AUTO) 0.1 % (0.0-2.0); EOSINOPHILS # (AUTO) 0.1 K/uL (0.0-0.4); EOSINOPHILS % (AUTO) 1.5 % (0.0-4.0); HEMATOCRIT 38.9 % (36-54); HEMOGLOBIN 12.7 g/dL (14.0-18.0); LYMPHOCYTES # (AUTO) 2.1 K/uL (1.0-5.5); MEAN CORPUSCULAR HEMOGLOBIN 30 pg (27-31); MEAN CORPUSCULAR HGB CONC 33 % (32-36); MEAN CORPUSCULAR VOLUME 91 fL (79.0-98.0); MONOCYTES # (AUTO) 0.7 K/uL (0.0-1.0); MONOCYTES % (AUTO) 7.5 % (1.7-9.3); NEUTROPHILS # (AUTO) 6.3 K/uL (1.8-7.7); NEUTROPHILS % (AUTO) 67.9 % (40.0-70.0); PLATELET COUNT (AUTO) 250 K/uL (130-430); RED BLOOD CELL COUNT(AUTO) 4.27 MIL/uL (4.2-6.2); RED CELL DISTRIBUTION WIDTH 17.3 % (9.0-15.0); WHITE BLOOD COUNT (AUTO) 9.3 K/uL (4.8-10.8)
[2023-06-11 06:58] LABS: ALBUMIN 2.3 g/dL (3.4-4.8); CALCIUM 8.2 mg/dL (8.4-11.0); CREATININE 0.75 mg/dL (0.55-1.30); POTASSIUM 3.6 mmol/L (3.5-5.1); TOTAL BILIRUBIN 0.5 mg/dL (0.0-1.0); TOTAL PROTEIN, SERUM 5.9 g/dL (6.4-8.3)
[2023-06-11] MEDS: SILVER SULFADIAZINE 1%, 400 GM 400 GM CREAM.GM. TP SCH (15:52)
[2023-06-11] MEDS ORDERED: traZODone HCL 50 MG TABLET (DESYREL) PO PRN (17:30)
[2023-06-12] VITALS (10 sets, daily range): BP systolic 89–124; PULSE 90–96; RESP 16–20; TEMP 96.7–97.9; O2SAT 91–99
[2023-06-12] MEDS: DIVALPROEX SODIUM 500 MG TABLET( DEPAKOTE) PO SCH (21:27)
[2023-06-13] VITALS (11 sets, daily range): BP systolic 90–116; PULSE 82–103; RESP 17–20; TEMP 96.3–98.1; O2SAT 91–100
[2023-06-13] MEDS: HALOPERIDOL 1 MG TABLET (HALDOL) PO ONE (18:49)
[2023-06-13] MEDS: HALOPERIDOL 1 MG TABLET (HALDOL) PO SCH (21:00)
[2023-06-13] MEDS: MORPHINE 2 MG/ML INJ. SYRINGE IVP PRN (22:02)
[2023-06-14] VITALS (9 sets, daily range): BP systolic 93–128; PULSE 77–102; RESP 18–20; TEMP 98–98.8; O2SAT 95–100
[2023-06-14 07:41] LABS: BASOPHILS % (AUTO) 0.2 % (0.0-2.0); EOSINOPHILS # (AUTO) 0.2 K/uL (0.0-0.4); EOSINOPHILS % (AUTO) 1.7 % (0.0-4.0); HEMATOCRIT 39.4 % (36-54); HEMOGLOBIN 12.6 g/dL (14.0-18.0); LYMPHOCYTES # (AUTO) 1.6 K/uL (1.0-5.5); LYMPHOCYTES % (AUTO) 14.7 % (20.5-51.5); MEAN CORPUSCULAR HEMOGLOBIN 29 pg (27-31); MEAN CORPUSCULAR HGB CONC 32 % (32-36); MEAN CORPUSCULAR VOLUME 90 fL (79.0-98.0); NEUTROPHILS # (AUTO) 8.2 K/uL (1.8-7.7); NEUTROPHILS % (AUTO) 74.4 % (40.0-70.0); PLATELET COUNT (AUTO) 238 K/uL (130-430); RED BLOOD CELL COUNT(AUTO) 4.37 MIL/uL (4.2-6.2); RED CELL DISTRIBUTION WIDTH 17.8 % (9.0-15.0)
[2023-06-14 07:52] LABS: ALBUMIN 2.2 g/dL (3.4-4.8); CALCIUM 8.5 mg/dL (8.4-11.0); CREATININE 0.62 mg/dL (0.55-1.30); POTASSIUM 3.8 mmol/L (3.5-5.1); TOTAL BILIRUBIN 0.4 mg/dL (0.0-1.0); TOTAL PROTEIN, SERUM 6.2 g/dL (6.4-8.3)
[2023-06-15] VITALS: BP_SYST 105; PULSE 91; RESP 18; TEMP 99.4; O2SAT 95
[2023-06-15 00:52] VITALS: BP_SYST 121; PULSE 77; RESP 18; TEMP 98; O2SAT 100
== END 2023-06-15 08:55 | disposition left against medical advice (07) | DRG 720 ==
LOC: SED 14:14 → STU 17:23 → SIC 05-27 23:53 → STU 06-07 19:34 → SMU 06-14 06:02
PROVIDERS: ADMIT Internal Medicine; ATTEND Internal Medicine
PROC: 5A1955Z Respiratory Ventilation, Greater than 96 Consecutive Hours (ICD-10-PCS; principal; 2023-05-27)
PROC: XW033E5 Introduction of Remdesivir Anti-infective into Peripheral Vein, Percutaneous Approach, New Technology Group 5 (ICD-10-PCS; 2023-05-27)
PROC: 0BH17EZ Insertion of Endotracheal Airway into Trachea, Via Natural or Artificial Opening (ICD-10-PCS; 2023-05-28)
PROC: 06HY33Z Insertion of Infusion Device into Lower Vein, Percutaneous Approach (ICD-10-PCS; 2023-05-28)
PROC: B54BZZA Ultrasonography of Right Lower Extremity Veins, Guidance (ICD-10-PCS; 2023-05-28)
PROC: 5A1935Z Respiratory Ventilation, Less than 24 Consecutive Hours (ICD-10-PCS; 2023-06-02)
PROC: 0JB70ZZ Excision of Back Subcutaneous Tissue and Fascia, Open Approach (ICD-10-PCS; 2023-06-04)
DX: A41.9 Sepsis, unspecified organism (principal); J96.01 Acute respiratory failure with hypoxia; J12.82 Pneumonia due to coronavirus disease 2019; J44.0 Chronic obstructive pulmonary disease with (acute) lower respiratory infection; I50.41 Acute combined systolic (congestive) and diastolic (congestive) heart failure; U07.1 COVID-19; I11.0 Hypertensive heart disease with heart failure; I24.89 Other forms of acute ischemic heart disease; I42.0 Dilated cardiomyopathy; S21.202A Unspecified open wound of left back wall of thorax without penetration into thoracic cavity, initial encounter; S41.002A Unspecified open wound of left shoulder, initial encounter; W18.39XA Other fall on same level, initial encounter; K21.9 Gastro-esophageal reflux disease without esophagitis; E11.65 Type 2 diabetes mellitus with hyperglycemia; E66.9 Obesity, unspecified; F41.9 Anxiety disorder, unspecified; F15.10 Other stimulant abuse, uncomplicated; Z53.29 Procedure and treatment not carried out because of patient's decision for other reasons; L98.429 Non-pressure chronic ulcer of back with unspecified severity; J98.19 Other pulmonary collapse; J98.11 Atelectasis; F10.10 Alcohol abuse, uncomplicated; Y90.9 Presence of alcohol in blood, level not specified; Y93.89 Activity, other specified; Y92.89 Other specified places as the place of occurrence of the external cause; Y99.8 Other external cause status; Z87.891 Personal history of nicotine dependence; Z68.25 Body mass index [BMI] 25.0-25.9, adult
CPT/HCPCS: 36415; 36600; 70450-TC; 71045; 72050; 72072; 73030; 73200-TC; 73521; 76376; 80048; 80053; 80061; 80307; 81000; 81001; 81015; 82803; 82948; 82962; 83037; 83735; 83880; 84100; 84439; 84443; 84484; 85025; 85610; 85730; 87070; 87075; 87081; 87205; 92610-GN; 93005; 93306; 94002; 94003; 94640; 94668; 94760; 96374; 96375; 97110-GP; 97116-GP; 97530-GP; 99285; G0378; J0295; J0360; J0456; J0696; J1030; J1100; J1200; J1630; J1650; J1815; J1940; J2060; J2270; J2704; J3010; J3411; J3490; J7050; J7060; J7608; J8597; Q0144